=== PATIENT | female | born 1955 | race Caucasian/White ===

== ENCOUNTER 2021-08-24 19:09 | Emergency (ER) | payer SELFPAY ==
[~2021-08-24] VITALS: Ht 154.9 cm; Wt 77.1 kg
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
--- NOTE | 2021-08-24 19:43 | NUR ---
URINE SPECIMEN COLLECTED AND SENT TO LAB.
[2021-08-24] MEDS ORDERED: LIDOCAINE 1% INJ 50 ML MDV IJ ONE (19:54)
--- NOTE | 2021-08-24 19:55 | NUR ---
PATIENT TAKEN TO CT
--- NOTE | 2021-08-24 20:06 | NUR ---
PT RETURNED TO ER ROOM 9
--- NOTE | 2021-08-24 21:01 | NUR ---
Patient discharged to home in stable condition. Written and verbal after care instructions given. Patient verbalizes understanding of instruction. PT ambulatory with a steady gait. SUTURES TO PT'S FORHEAD BY .
[2021-08-24 21:15] VITALS: BP 151/75
== END 2021-08-24 21:05 | disposition home or self-care (01) ==
LOC: ER 19:10
DX: S01.81XA Laceration without foreign body of other part of head, initial encounter (principal); Z98.890 Other specified postprocedural states; V49.69XA Unspecified car occupant injured in collision with other motor vehicles in traffic accident, initial encounter; Y93.89 Activity, other specified; Y92.413 State road as the place of occurrence of the external cause; Y99.8 Other external cause status
CPT/HCPCS: 12013; 70450; 99284; J3490